=== PATIENT | female | born 1940 | race Caucasian/White ===

== ENCOUNTER 2017-05-05 21:16 | Observation (INO) | payer MEDICARE, BC ==
[2017-05-05 22:38] LABS: #Basophils 0.1 thou/uL (0.0-0.2); #Eosinphils 0.2 thou/uL (0.0-0.7); #Lymphocytes 1.7 thou/uL (1.20-3.40); #Monocytes 0.8 thou/uL (0.11-0.59); #Neutrophils 6.2 thou/uL (1.40-6.50); %Eosinophils 1.8 % (0.0-10.0); %Lymphocytes 19.3 % (21.0-51.0); %Monocytes 8.9 % (0.0-10.0); %Neutrophils 68.9 % (42.0-75.0); Hemoglobin 12.1 g/dL (12.0-16.0); Mean Corpuscular HGB CONC 34.2 g/dL (32.0-36.0); Mean Corpuscular Hemoglobin 30.7 pg (27.0-31.0); Mean Corpuscular Volume 89.8 fl (81.0-99.0); Mean Platelet Volume 7.7 fL (7.4-10.4); Platelet Count 236 thou/uL (130-400); Red Blood Cell (RBC) Count 3.94 mill/uL (4.20-5.40); White Blood Cell (WBC) Count 8.9 thou/uL (4.8-10.8)
[2017-05-05 22:45] LABS: Prothrombin Time 13.2 SEC (12.0-14.7)
[2017-05-05 22:46] LABS: PTT 36.5 SEC (22.9-36.1)
[2017-05-05 22:56] LABS: ALT (SGPT) 11 U/L (8-55); AST (SGOT) 16 U/L (5-34); Alkaline Phosphatase 93 U/L (40-150); Anion Gap 10 mmol/L (10-20); BUN (Urea Nitrogen) 10 mg/dL (9.8-20.1); Bilirubin, Total 0.4 mg/dL (0.2-1.2); CK (CPK) 69 U/L (29-168); Calc. Creatinine Clearance 0 mL/min (70-130); Calcium 9.1 mg/dL (7.8-10.44); Carbon Dioxide 31 mmol/L (23-31); Chloride 99 mmol/L (98-107); Estimated GFR-MDRD 47; Globulin 3.1 g/dL (2.4-3.5); Glucose 121 mg/dL (83-110); Lipase 21 U/L (8-78); Protein, Total 7.1 g/dL (6.0-8.3); Sodium 137 mmol/L (136-145)
[2017-05-05 22:58] LABS: CKMB 0.9 ng/mL (0-6.6); Troponin I Less than 0.010 ng/mL (< 0.028)
--- NOTE | 2017-05-05 22:59 | RAD ---
CHEST PA AND LATERAL: History: 76-year-old female with history of chest pain. FINDINGS: Heart size is within normal limits. The lungs are clear. No confluent pneumonia, overt edema, or pleu ral effusion. IMPRESSION: No acute intrathoracic disease. Stable from prior study. POS: [facility]
--- NOTE | 2017-05-06 01:02 | PDOC.EVN ---
Event Note - Event Note Event Note: [id number] H&P Dictated 1. Chest pain 2. HTN 3. HPL PLAN: SEE ORDERS
[2017-05-06] MEDS ORDERED: Lorazepam 2 MG/ML VIAL ONE (01:07)
[2017-05-06] MEDS ORDERED: cloNIDine 0.1 MG TAB PO PRN (01:23)
[2017-05-06] MEDS ORDERED: Acetaminophen 325 MG TAB PO PRN (01:23)
[2017-05-06] MEDS ORDERED: Potassium Chloride 20 MEQ TAB ONE (01:43)
[2017-05-06 02:26] LABS: Troponin I Less than 0.010 ng/mL (< 0.028)
[2017-05-06 02:34] LABS: Cardiac Risk 5.1 (Less than 4.5)
[2017-05-06 03:15] VITALS: BMI 27.5
--- NOTE | 2017-05-06 03:37 | HP ---
DATE OF ADMISSION: 05/05/2017 CHIEF COMPLAINT: Chest pain. HISTORY OF PRESENT ILLNESS: The patient is a 76 years old female with past medical history of hypert ension, hyperlipidemia, now came to the ER because of the chest pain. The patient started having gonzalo st pain all of sudden, chest pain is substernal, tightness kind of pain radiating towards the left sh oulder, moderate in intensity. Currently, denies any pain. Denies any nausea, denies any vomiting, denies any palpation. Denies any sweating with chest pain. Denies similar episodes. Currently, gonzalo st pain free at this time. PAST MEDICAL HISTORY: As per HPI. PAST SURGICAL HISTORY: Hemorrhoidectomy. SOCIAL HISTORY: Denies smoking, denies alcohol, denies any drugs. FAMILY HISTORY: Positive for heart problems. MEDICATIONS: Reviewed. REVIEW OF SYSTEMS: Constitutional: Denies any fever, denies any chills. Eyes: Ephraim any vision pr oblems. Ears: Denies any hearing loss. Neck: Denies any neck pain. Cardiovascular system: Denie s any chest pain, denies any palpitations. Respiratory system: Denies any cough, denies any sputum production. Gastrointestinal: Denies nausea, denies vomiting. Genitourinary: Denies dysuria. Card Dealer nial nerve system: Denies syncope. Psychiatric: Denies anxiety. Integumentary: Denies any rash. All other review of systems are reviewed and are negative. PHYSICAL EXAMINATION: CONSTITUTIONAL/VITAL SIGNS: At the time of H and P performed, blood pressure is 164/88, heart rate 6 0, pulse ox 98%. GENERAL: The patient appears comfortable. HEENT: Pupils equal, round, and reactive to light. Anterior nares patent. Teeth intact. Tongue is moist. NECK: Supple, no JVD. CARDIOVASCULAR: S1, S2 present. Regular rate and rhythm, no murmurs, no rubs, no gallops. RESPIRATORY SYSTEM: No wheezing, no rhonchi. Breath sounds present bilaterally. GASTROINTESTINAL: Abdomen is soft, nontender, no guarding, no organomegaly, no masses felt. MUSCULOSKELETAL: No edema. INTEGUMENTARY: No obvious rashes seen. PSYCHIATRIC: Mood is appropriate at this time. At the time of H and P performed, white count of 8.9 , hemoglobin 12.1, platelet count is 236. PT 13.5, INR 1. BMP shows sodium 137, potassium 3, chlori de 99, CO2 of 31, BUN of 10, creatinine 1.13, and troponin less than 1.010. EKG: No acute ST-T wave changes seen. Positive for Q-waves in lead III. ASSESSMENT AND PLAN: The patient is 76 years old female. 1. Chest pain, need to rule out cardiac etiology. Plan to check cardiac enzymes. Plan to consult C ardiology to evaluate the patient. 2. History of hypertension, monitor blood pressures, continue home blood pressure medications. 3. History of hyperlipidemia. Continue statin. Case was discussed in detail with the patient.
[2017-05-06] MEDS ORDERED: Nitroglycerin 2% Ointment 1 INCH/1 GM Packet TOP SCH (06:00)
[2017-05-06] MEDS ORDERED: Aspirin 325 MG TAB PO SCH (09:00)
[2017-05-06] MEDS ORDERED: Losartan Potassium 25 MG TAB PO SCH (10:45)
[2017-05-06 11:03] VITALS: BP 137/62; TEMP 97.6
[2017-05-06] MEDS ORDERED: ADENOSINE 60 MG/20 ML VIAL ONE (13:30)
--- NOTE | 2017-05-06 14:15 | NM ---
RADIONUCLIDE STRESS AND REST MYOCARDIAL PERFUSION SCAN WITH CT ATTENUATION CORRECTION AND SPECT IMAGI NG WITH LEFT VENTRICULAR WALL MOTION EVALUATION AND EJECTION FRACTION: HISTORY: Chest pain. FINDINGS: Adenosine protocol used. There is homogeneous uptake of radiotracer throughout the left ventricular m yocardium on the stress and rest images. No focal perfusion defect or reversibility are evident. QGS analysis of gated SPECT images shows no focal wall motion abnormalities. Left ventricular ejectio n fraction is estimated at greater than 80%. IMPRESSION: 1. Normal myocardial perfusion scan. 2. Normal LVEF. POS: [facility]
--- NOTE | 2017-05-06 14:21 | PDOC.PN ---
- Subjective Encounter Start Date: 05/06/17 Encounter Start Time: 08:30 Subjective: No more chest or shoulder pain. Resolved in ER. Patient suspects -: it may have been her GERD. - Objective MAR Reviewed: Yes Vital Signs & Weight: Vital Signs (12 hours) Temp Pulse Resp BP Pulse Ox 05/06/17 11:01 97.6 F 59 L 16 137/62 96 05/06/17 08:30 98.5 F 67 16 05/06/17 07:15 98.5 F 67 16 168/72 H 98 Weight Weight 155 lb 4.8 oz I&O: 05/05/17 05/06/17 05/07/17 06:59 06:59 06:59 Intake Total 240 Output Total 450 Balance -210 Result Diagrams: 05/05/17 22:07 05/05/17 22:07 Phys Exam - Physical Examination Constitutional: NAD HEENT: moist MMs Neck: no JVD Respiratory: no wheezing, no rales, no rhonchi, clear to auscultation bilateral Cardiovascular: RRR, no significant murmur Gastrointestinal: soft, non-tender, positive bowel sounds Neurological: non-focal, moves all 4 limbs Psychiatric: normal affect, A&O x 3 Dx/Plan (1) Chest pain Code(s): R07.9 - CHEST PAIN, UNSPECIFIED Status: Resolved Comment: Negative stress test (2) Hypertension Code(s): I10 - ESSENTIAL (PRIMARY) HYPERTENSION Status: Chronic (3) GERD (gastroesophageal reflux disease) Code(s): K21.9 - GASTRO-ESOPHAGEAL REFLUX DISEASE WITHOUT ESOPHAGITIS Status: Chronic (4) Hyperlipidemia Code(s): E78.5 - HYPERLIPIDEMIA, UNSPECIFIED Status: Chronic - Plan cont current plan of care Stress test negative. Likely GI in origin. Continue PPI and f/u with PCP. * . - Discharge Day Encounter end time: 09:00
--- NOTE | 2017-05-06 19:25 | DIS ---
PRIMARY CARE PHYSICIAN: John Travis MD ADMISSION DIAGNOSES: 1. Chest pain. 2. Hypertension. 3. Hyperlipidemia. DISCHARGE DIAGNOSES: 1. Chest pain, resolved, noncardiac. 2. Gastroesophageal reflux disease. 3. Hypertension. 4. Hyperlipidemia. PROCEDURE: Nuclear medicine stress test showing normal ejection fraction and no evidence of ischemic disease. PERTINENT LABORATORY DATA: Triglycerides 155, total cholesterol 168, LDL 104, creatinine 1.13. SUMMARY OF HOSPITAL COURSE: This is a 76-year-old white female, who presented to the emergency room with substernal/midepigastric chest pain, noted as tightness. She had a little bit of left shoulder discomfort anteriorly as well. This began just prior to coming to the emergency room and resolved in the emergency room. She had a mild episode the day before as well that was self-limited. The patie nt has had previous stress test in the office, but no further cardiac workup in the past. She had so me possible Q-waves in her EKG in lead III, but no acute ST changes were seen. The patient was admit derick to the hospital. She had negative serial enzymes x3. She was asymptomatic during her hospitaliz ation. Nuclear medicine stress test was negative and she is being discharged home. DISCHARGE MANAGEMENT: Discharged home. Follow up with primary care physician next week. ACTIVITY: As tolerated. DIET: Healthy heart, low-sodium diet. DISCHARGE MEDICATIONS: Resume all home medications. 1. Omeprazole 20 mg daily. 2. Pravastatin 40 mg at night. 3. Losartan 100 mg at night. 4. Clonidine 0.1 mg twice a day. 5. Hydrochlorothiazide 12.5 mg daily.
[2017-05-06] MEDS ORDERED: Atorvastatin Calcium 10 MG TAB PO SCH (21:00)
[2017-05-06] MEDS ORDERED: Non-Formulary Item 1 EACH (Losartan Potassium [Losartan Potassium] 100 MG) PO SCH (21:00)
[2017-05-06] MEDS ORDERED: cloNIDine 0.1 MG TAB PO SCH (21:00)
[2017-05-07] MEDS ORDERED: Hydrochlorothiazide 25 MG TAB PO SCH (09:00)
[2017-05-07] MEDS ORDERED: Losartan Potassium 25 MG TAB PO SCH (21:00)
--- NOTE | 2017-05-14 12:45 | STRESS ---
Acquisition Time: 2017-05-06 12:49:37 Total Exercise Time: 00:04:00 Test Indications: CHEST PAIN Medications: Protocol: ADENOSINE Max HR: 092 BPM 64% of Pred: 143 BPM Max BP: 134/064 mmHG Max Work Load: 1.0 METS RESTING ECG: NORMAL SINUS RHYTHM SYMPTOMS: PALPITATIONS; DYSPNEA ON EXERTION NORMAL BP RESPONSE ECTOPY: NONE ECG STRESS: NO SIGNIFICANT CHANGES INTERPRETATION: AWAIT NUCLEAR IMAGES FOR DEFINITIVE DIAGNOSIS Confirmed by RUTH MORALES ([id number]), web content editor NISHI CHACKO ([id number]) on 05/14/2017 12:44:44 PM Referred By: Pavel TURNER Confirmed By:RUTH MORALES
== END 2017-05-06 15:06 | disposition home or self-care (01) ==
LOC: ERS 21:16 → 2SW 23:50
PROVIDERS: ADMIT Internal Medicine; ATTEND Internal Medicine
DX: R07.89 Other chest pain (principal); K21.9 Gastro-esophageal reflux disease without esophagitis; I10 Essential (primary) hypertension; E78.5 Hyperlipidemia, unspecified; Z79.899 Other long term (current) drug therapy; Z88.2 Allergy status to sulfonamides; Z88.8 Allergy status to other drugs, medicaments and biological substances; Z98.890 Other specified postprocedural states
CPT/HCPCS: 71020; 78452; 80053; 80061; 82550; 82553; 83690; 84484 ×3; 85025; 85610; 85730; 93005; 93017; 94760; 99285; A9500; G0378; 36415; J0153; J2060

== ENCOUNTER 2019-12-12 10:42 | Emergency (ER) | payer MEDICARE, OTHER ==
[2019-12-12 11:31] LABS: #Basophils 0.1 thou/uL (0.0-0.2); #Eosinphils 0.2 thou/uL (0.0-0.7); #Lymphocytes 1.1 thou/uL (1.20-3.40); #Monocytes 0.6 thou/uL (0.11-0.59); %Basophils 0.7 % (0.0-1.0); %Eosinophils 1.6 % (0.0-10.0); %Lymphocytes 11.3 % (21.0-51.0); %Monocytes 5.8 % (0.0-10.0); %Neutrophils 80.7 % (42.0-75.0); Hemoglobin 12.5 g/dL (12.0-16.0); Mean Corpuscular HGB CONC 34.3 g/dL (32.0-36.0); Mean Corpuscular Hemoglobin 30.7 pg (27.0-31.0); Mean Corpuscular Volume 89.4 fL (78.0-98.0); Mean Platelet Volume 7.6 fL (7.4-10.4); Platelet Count 241 thou/uL (130-400); RBC Distribution Width 12.7 % (11.5-14.5); Red Blood Cell (RBC) Count 4.09 mill/uL (4.20-5.40); White Blood Cell (WBC) Count 9.9 thou/uL (4.8-10.8)
[2019-12-12 11:50] LABS: ALT (SGPT) 9 U/L (8-55); AST (SGOT) 17 U/L (5-34); Albumin 3.9 g/dL (3.4-4.8); Alkaline Phosphatase 86 U/L (40-110); Anion Gap 11 mmol/L (10-20); BUN (Urea Nitrogen) 8 mg/dL (9.8-20.1); Bilirubin, Total 0.8 mg/dL (0.2-1.2); Calc. Creatinine Clearance 0 mL/min (70-130); Calcium 9.1 mg/dL (7.8-10.44); Carbon Dioxide 28 mmol/L (23-31); Chloride 103 mmol/L (98-107); Estimated GFR-MDRD 52; Globulin 3.2 g/dL (2.4-3.5); Glucose 110 mg/dL (83-110); Potassium 3.7 mmol/L (3.5-5.1); Protein, Total 7.1 g/dL (6.0-8.3); Sodium 138 mmol/L (136-145)
[2019-12-12] MEDS ORDERED: Iopamidol-370 76% 500 ML 1 ML ONE (12:04)
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
[2019-12-12] MEDS ORDERED: Acetaminophen 325 MG TAB ONE (13:04)
[2019-12-12] MEDS ORDERED: Ketorolac Tromethamine 30 MG/ML VIAL ONE (13:04)
== END 2019-12-12 13:30 | disposition home or self-care (01) ==
LOC: ERS 10:42
DX: S16.1XXA Strain of muscle, fascia and tendon at neck level, initial encounter (principal); S20.211A Contusion of right front wall of thorax, initial encounter; E78.5 Hyperlipidemia, unspecified; E78.00 Pure hypercholesterolemia, unspecified; I10 Essential (primary) hypertension; F32.9 Major depressive disorder, single episode, unspecified; Z79.899 Other long term (current) drug therapy; V89.2XXA Person injured in unspecified motor-vehicle accident, traffic, initial encounter
CPT/HCPCS: 36415; 70450; 71260; 72125; 74177; 80053; 84484; 85025; 93005; 96374; J1885; Q9967

== ENCOUNTER 2021-04-25 15:31 | Outpatient (CLI) | payer MEDICARE, OTHER | END 2021-04-25 15:32 | disposition home or self-care (01) | LOC: BICMAMMO 15:31 | PROVIDERS: ATTEND Internal Medicine | DX: Z12.31 Encounter for screening mammogram for malignant neoplasm of breast (principal) | CPT/HCPCS: 77063; 77067 ==

== ENCOUNTER 2023-01-07 14:57 | Outpatient (CLI) | payer OTHER | END 2023-01-07 14:58 | disposition home or self-care (01) | LOC: BICMAMMO 14:57 | PROVIDERS: ATTEND Nurse Practitioner Family | DX: Z13.820 Encounter for screening for osteoporosis (principal); S32.001A Stable burst fracture of unspecified lumbar vertebra, initial encounter for closed fracture; M85.851 Other specified disorders of bone density and structure, right thigh; M85.852 Other specified disorders of bone density and structure, left thigh | CPT/HCPCS: 77080 ==

== ENCOUNTER 2024-05-06 09:46 | Outpatient (CLI) | payer OTHER | END 2024-05-06 09:47 | disposition home or self-care (01) | LOC: CT 09:46 | PROVIDERS: ATTEND Family Medicine | DX: R41.3 Other amnesia (principal); R90.82 White matter disease, unspecified | CPT/HCPCS: 36415; 70470; 82565 ==

== ENCOUNTER 2024-06-02 14:27 | Outpatient (CLI) | payer OTHER ==
[~2024-06-02 14:27] MED LIST: Magnevist 469MG/ML 20 ML VIAL ONE
== END 2024-06-02 14:28 | disposition home or self-care (01) ==
LOC: BICMRI 14:27
PROVIDERS: ATTEND Family Medicine
DX: R90.89 Other abnormal findings on diagnostic imaging of central nervous system (principal); R90.82 White matter disease, unspecified
CPT/HCPCS: 36415; 70553; 82565

== ENCOUNTER 2024-12-19 21:29 | Emergency (ER) | payer OTHER ==
[2024-12-19] MEDS ORDERED: HYDROcodone/Acetaminophen 5/325 mg Tablet ONE (22:53)
== END 2024-12-20 00:15 | disposition home or self-care (01) ==
LOC: ERS 21:29
DX: G89.29 Other chronic pain (principal); M25.552 Pain in left hip; M25.551 Pain in right hip; I10 Essential (primary) hypertension; Z79.899 Other long term (current) drug therapy
CPT/HCPCS: 99283